=== PATIENT | female | born 1950 | race Caucasian/White ===

== ENCOUNTER 2021-11-12 05:32 | Inpatient (IN) | payer MEDICARE, BC ==
[2021-11-06 13:57] LABS: BASOPHILS # (AUTO) 0.1 X10'3 (0-0.2); BASOPHILS % (AUTO) 0.6 % (0-1); EOSINOPHILS # (AUTO) 0.1 X10'3 (0-0.9); EOSINOPHILS % (AUTO) 0.7 % (0-6); LYMPHOCYTES # (AUTO) 1.4 X10'3 (1.1-4.8); LYMPHOCYTES % (AUTO) 10.6 % (21-51); MEAN CORPUSCULAR HEMOGLOBIN 27.1 PG (27.0-31.0); MEAN CORPUSCULAR HGB CONC 32.4 g/dL (33.0-36.5); MEAN CORPUSCULAR VOLUME 83.6 FL (78-98); MEAN PLATELET VOLUME 8.4 FL (7.4-10.4); MONOCYTES # (AUTO) 1.1 X10'3 (0-0.9); MONOCYTES % (AUTO) 8.4 % (2-12); NEUTROPHILS # (AUTO) 10.8 X10'3 (1.8-7.7); NEUTROPHILS % (AUTO) 79.7 % (42-75); PRE OP HEMATOCRIT 38.8 % (35.0-45.0); PRE OP HEMOGLOBIN 12.6 g/dL (12.0-16.0); PRE OP PLATELET COUNT 295 X10'3 (140-440); RED BLOOD COUNT 4.65 X10'6 (4.20-5.60); RED CELL DISTRIBUTION WIDTH 15.3 % (11.5-14.5)
[2021-11-06 14:23] LABS: HEMOGLOBIN A1C 6.1 % (4.5-6.2)
[2021-11-06 14:28] LABS: ALBUMIN 3.9 G/DL (3.4-5.0); ALBUMIN/GLOBULIN RATIO 0.8 (1.1-1.5); ALKALINE PHOSPHATASE 89 IU/L (46-116); BLOOD UREA NITROGEN 45 MG/DL (7-18); BUN/CREATININE RATIO 36.3 (6.6-38.0); CALCIUM 10.3 MG/DL (8.5-10.1); CHLORIDE 102 MMOL/L (99-107); CREATININE 1.24 MG/DL (0.40-0.90); PRE OP ALT 19 U/L (30-65); PRE OP ANION GAP 11 (8-16); PRE OP AST 21 U/L (10-37); PRE OP BILIRUB, TOTAL 0.5 MG/DL (0.0-1.0); PRE OP GLUCOSE 118 MG/DL (70-104); PRE OP POTASSIUM 4.4 MMOL/L (3.4-5.1); PRE OP SODIUM 137 MMOL/L (135-145); TOTAL CARBON DIOXIDE 24.1 MMOL/L (24-32); TOTAL PROTEIN 8.9 G/DL (6.4-8.2); eGFR 43 ML/MIN
[2021-11-12] VITALS (20 sets, daily range): BP systolic 102–152; BP diastolic 53–95
[~2021-11-12] VITALS: Ht 167.6 cm; Wt 110.0 kg
[~2021-11-12 05:32] MED LIST: ALEN70TA60 PO; DULA1.5P SQ; [UNRECOGNIZED DRUG - OTHER] PO; cefazolin/dext.iso 2gm/50ml IV ONE; famotidine 20mg tablet PO ONE; ringers solution, lacted 1,000 ML IV SCH; tranexamic acid 650mg tablet PO ONE; vancomycin 1,500 MG in NS 300ml IV soln IV ONE
[2021-11-12] MEDS ORDERED: morphine 4 MG/ML inj SYRINge IV ONE (07:35)
[2021-11-12] MEDS ORDERED: morphine 4 MG/ML inj SYRINge ONE (07:39)
[2021-11-12] MEDS ORDERED: ROPIVAcaine 0.5% (5mg/ml) 30ml vial ONE (07:42)
[2021-11-12] MEDS ORDERED: midazolam 1 mg/ML 2ml injection ONE (07:54)
[2021-11-12] MEDS ORDERED: fentaNYL /PF 50mcg/ml 5ml ampule ONE (07:55)
[2021-11-12] MEDS ORDERED: rocuronium 10mg/ml inj IV ONE (08:41)
[2021-11-12] MEDS ORDERED: propofol inj 20 ML IV ONE (08:41)
[2021-11-12] MEDS ORDERED: sevoflurane 250ml liquid IH ONE (08:41)
--- NOTE | 2021-11-12 08:46 | NUR ---
CSM INTACT, JOINT VIDEO WAS VIEWED BY PATIENT
[2021-11-12] MEDS ORDERED: labetalol 20mg/4ml (5mg/ml) syringe IV PRN (10:20)
[2021-11-12] MEDS ORDERED: meperidine/PF 25mg/ml syringe IV PRN ×3 (10:20)
[2021-11-12] MEDS ORDERED: morphine 4 MG/ML inj SYRINge IV PRN (10:20)
[2021-11-12] MEDS ORDERED: ringers solution, lacted 1,000 ML IV SCH (10:20)
[2021-11-12] MEDS ORDERED: ondansetron/PF 4mg/2ml inj IV PRN ×2 (10:20→11:05)
[2021-11-12] MEDS ORDERED: morphine 2 MG/ML inj. syringe IV PRN (10:20)
[2021-11-12] MEDS ORDERED: ondansetron/PF 4mg/2ml inj ONE (10:50)
[2021-11-12] MEDS ORDERED: dexamethasone sod phosphate 4mg/ml inj. ONE (10:50)
[2021-11-12] MEDS ORDERED: acetaminophen 1,000mg/100ml IV 100 ML IV ONE (10:51)
[2021-11-12] MEDS ORDERED: magnesium hydroxide 30ml (MOM) UD suspension PO PRN (11:05)
[2021-11-12] MEDS ORDERED: acetaminophen 325mg tablet PO PRN (11:05)
[2021-11-12] MEDS ORDERED: naloxone 0.4 mg/ml inj IV PRN (11:05)
[2021-11-12] MEDS: potassium cl 20mEq in 1/2 NS 1,000 ML IV SCH ×2 (11:05→20:49)
[2021-11-12] MEDS ORDERED: HYDROmorphone 1 mg/ml syringe IV PRN (11:05)
[2021-11-12] MEDS ORDERED: HYDROcodone/acetaminophen 10/325mg tab PO PRN (11:05)
[2021-11-12] MEDS ORDERED: diphenhydrAMINE 25mg capsule PO PRN ×2 (11:05)
[2021-11-12] MEDS ORDERED: bisacodyl 10mg suppository rectal RC PRN (11:05)
--- NOTE | 2021-11-12 11:10 | NUR ---
PT ARRIVED TO VIA BED, ACCOMPANIED BY DR PEREZ-ANESTHESIA REPORT GIVEN, SLEEPY AT PRESENT, NO SN/SX OF PAIN, VSS, SCDS ON, PIV 18G TO RFA, LEFT KNEE-WRAPPED WITH ICE PRESENT-CDI, PULSES PRESENT
--- NOTE | 2021-11-12 11:55 | NUR ---
PT WAS PRIOR TO SURGERY C/O PAIN IN BILAT LE-GIVEN MS 4MG PREOP, PT STILL UNCOMFORTABLE WHEN AWAKE-RESTLESS, MOVING IN BED, MOANING-ATTEMPTING TO HELP WITH PAIN MEDS.
--- NOTE | 2021-11-12 12:20 | NUR ---
Received report from SUSANA Chatman in PACU
--- NOTE | 2021-11-12 12:30 | NUR ---
PT DOING BETTER NOW, PAIN TOLERABLE, VSS, FAMILY TO BRING IN PT'S CPAP, DRSG-CDI TO LEFT KNEE, PULSES PRESENT, ICE IN PLACE, SCDS ON, LR RUNNING AT 100ML/HR TO PIV 18G RFA, REPORT CALLED TO ELISEO MEZA-ALL QUESTIONS ANSWERED, TAKEN WITH ALL BELONGINGS TO RM 4022A, PRIMARY RN IN TO RECEIVE PT.
[2021-11-12] MEDS: oxyCODONE IR 5mg (immed. release) tablet PO PRN ×2 (13:06→19:36)
[2021-11-12] MEDS: acetaminophen 325mg tablet PO SCH ×2 (14:00→19:37)
[2021-11-12] MEDS: ceFAZolin/D5W- 1GM premix 50 ML IV SCH (15:52)
--- NOTE | 2021-11-12 18:14 | NUR ---
Gave report to SUSANA Alan
[2021-11-12] MEDS: sennosides 8.6mg tablet PO SCH (19:35)
[2021-11-12] MEDS ORDERED: vancomycin/NS 1 GM ADD-VANTAGE 250 ML IV SCH (20:00)
[2021-11-13] MEDS: ceFAZolin/D5W- 1GM premix 50 ML IV SCH (00:28)
[2021-11-13] MEDS: oxyCODONE IR 5mg (immed. release) tablet PO PRN ×5 (01:56→18:39)
[2021-11-13] MEDS: acetaminophen 325mg tablet PO SCH ×4 (01:56→20:52)
[2021-11-13 02:15] VITALS: BP 130/62
--- NOTE | 2021-11-13 02:16 | NUR ---
I reviewed and agree with Yanira Arias's charting including the physical assessment and hourly rounding.
--- NOTE | 2021-11-13 02:41 | NUR ---
Student documentation: I have reviewed interventions, assessments performed and documented by Rebecca DELGADO [facility].
--- NOTE | 2021-11-13 02:43 | NUR ---
Student documentation: I have reviewed interventions, assessments performed and documented by Rebecca DELGADO [facility].
[2021-11-13] MEDS: potassium cl 20mEq in 1/2 NS 1,000 ML IV SCH ×2 (03:05→06:03)
--- NOTE | 2021-11-13 06:18 | NUR ---
Received report from SUSANA Alan
[2021-11-13 06:37] VITALS: BP 150/79
[2021-11-13 06:55] LABS: BASOPHILS % (AUTO) 0.1 % (0-1); EOSINOPHILS % (AUTO) 0 % (0-6); HEMOGLOBIN 9.9 g/dl (12.0-16.0); LYMPHOCYTES # (AUTO) 0.8 X10'3 (1.1-4.8); LYMPHOCYTES % (AUTO) 6.1 % (21-51); MEAN CORPUSCULAR HGB CONC 32.9 g/dL (33.0-36.5); MEAN CORPUSCULAR VOLUME 85.1 FL (78-98); MEAN PLATELET VOLUME 8.6 FL (7.4-10.4); MONOCYTES # (AUTO) 1.1 X10'3 (0-0.9); MONOCYTES % (AUTO) 8.3 % (2-12); NEUTROPHILS # (AUTO) 11.6 X10'3 (1.8-7.7); NEUTROPHILS % (AUTO) 85.5 % (42-75); PLATELET COUNT 214 X10'3 (140-440); RED BLOOD COUNT 3.53 X10'6 (4.20-5.60); RED CELL DISTRIBUTION WIDTH 15.4 % (11.5-14.5); WHITE BLOOD COUNT 13.6 X10'3 (4.5-11.0)
[2021-11-13 07:11] LABS: ANION GAP 6 (8-16); CHLORIDE 104 MMOL/L (99-107); POTASSIUM 4.6 MMOL/L (3.5-5.1); SODIUM 135 MMOL/L (135-145); TOTAL CARBON DIOXIDE 24.9 MMOL/L (24-32)
[2021-11-13] MEDS: HYDROmorphone inj. 0.5 MG/0.5 ML DISP.SYRIN IV PRN ×2 (07:12→20:55)
[2021-11-13] MEDS: [UNRECOGNIZED DRUG - MIXTURE] PO SCH (07:55)
[2021-11-13] MEDS: aspirin 325mg tablet PO SCH (07:56)
[2021-11-13 10:45] VITALS: BP 112/59
[2021-11-13 14:45] VITALS: BP 132/56
[2021-11-13 18:00] VITALS: BP 143/65
--- NOTE | 2021-11-13 18:32 | NUR ---
Report given to SUSANA Alan
[2021-11-13] MEDS: sennosides 8.6mg tablet PO SCH (20:50)
[2021-11-13] MEDS: celeCOXIB 100mg capsule PO SCH (20:51)
[2021-11-13 22:00] VITALS: BP 123/63
[2021-11-14] MEDS: acetaminophen 325mg tablet PO SCH ×2 (02:38→08:03)
[2021-11-14] MEDS: oxyCODONE IR 5mg (immed. release) tablet PO PRN ×4 (02:39→20:42)
--- NOTE | 2021-11-14 05:37 | NUR ---
ANA is working well for pt who was having a hard time with the bedpan and asking to pee every hour. Pt refused to allow us to change her wet linens at night-asked to wait until she was out of bed w/PT in the morning because it was just "too painful and not worth it."
--- NOTE | 2021-11-14 06:16 | NUR ---
Received report from SUSANA Alan
[2021-11-14 06:17] VITALS: BP 119/81
[2021-11-14 06:37] LABS: BASOPHILS % (AUTO) 0.3 % (0-1); EOSINOPHILS # (AUTO) 0.1 X10'3 (0-0.9); EOSINOPHILS % (AUTO) 0.7 % (0-6); HEMATOCRIT 27.4 % (35.0-45.0); HEMOGLOBIN 9.2 g/dl (12.0-16.0); LYMPHOCYTES # (AUTO) 0.8 X10'3 (1.1-4.8); LYMPHOCYTES % (AUTO) 9.1 % (21-51); MEAN CORPUSCULAR HEMOGLOBIN 28.5 PG (27.0-31.0); MEAN CORPUSCULAR HGB CONC 33.7 g/dL (33.0-36.5); MEAN CORPUSCULAR VOLUME 84.5 FL (78-98); MEAN PLATELET VOLUME 8.6 FL (7.4-10.4); MONOCYTES % (AUTO) 10.9 % (2-12); NEUTROPHILS # (AUTO) 7.3 X10'3 (1.8-7.7); PLATELET COUNT 168 X10'3 (140-440); RED BLOOD COUNT 3.24 X10'6 (4.20-5.60); RED CELL DISTRIBUTION WIDTH 15.8 % (11.5-14.5); WHITE BLOOD COUNT 9.2 X10'3 (4.5-11.0)
[2021-11-14] MEDS: [UNRECOGNIZED DRUG - MIXTURE] PO SCH (07:46)
[2021-11-14] MEDS: celeCOXIB 100mg capsule PO SCH ×2 (08:02→20:36)
[2021-11-14] MEDS: aspirin 325mg tablet PO SCH (08:03)
[2021-11-14 10:00] VITALS: BP 128/70
[2021-11-14] MEDS ORDERED: acetaminophen 325mg tablet PO PRN (11:05)
--- NOTE | 2021-11-14 13:30 | NUR ---
Patient needs to use restroom, pt paged.
[2021-11-14 15:30] VITALS: BP 130/56
[2021-11-14 18:00] VITALS: BP 152/76
--- NOTE | 2021-11-14 18:14 | NUR ---
Report given to SUSANA Christianson and HAYDER Orosco
--- NOTE | 2021-11-14 18:49 | NUR ---
Patient in room ORTHO 4022. I have received report from Vivi MEZA and had the opportunity to ask questions and assume patient care.
[2021-11-14] MEDS: sennosides 8.6mg tablet PO SCH (20:37)
[2021-11-14 22:00] VITALS: BP 151/64
--- NOTE | 2021-11-15 05:50 | NUR ---
Preceptor documentation: I have reviewed and agree with all interventions, assessments performed and documented by Ana Luisa SINGLETARY.
[2021-11-15] MEDS: oxyCODONE IR 5mg (immed. release) tablet PO PRN ×2 (05:51→12:44)
[2021-11-15 06:00] VITALS: BP 146/65
--- NOTE | 2021-11-15 06:15 | NUR ---
Problems reprioritized. Patient report given, questions answered & plan of care reviewed with SUSANA More.
--- NOTE | 2021-11-15 06:44 | NUR ---
Patient in room ORTHO 4022. I have received report from SUSANA Christianson and shanthi Orosco LVN and had the opportunity to ask questions and assume patient care.
[2021-11-15 08:30] LABS: HEMOGLOBIN 10.6 g/dl (12.0-16.0); MEAN CORPUSCULAR HEMOGLOBIN 28.2 PG (27.0-31.0); RED BLOOD COUNT 3.75 X10'6 (4.20-5.60)
[2021-11-15 08:31] LABS: BASOPHILS % (AUTO) 0.4 % (0-1); EOSINOPHILS # (AUTO) 0.2 X10'3 (0-0.9); EOSINOPHILS % (AUTO) 1.6 % (0-6); HEMATOCRIT 31.9 % (35.0-45.0); LYMPHOCYTES % (AUTO) 9.2 % (21-51); MEAN CORPUSCULAR HGB CONC 33.2 g/dL (33.0-36.5); MEAN CORPUSCULAR VOLUME 84.9 FL (78-98); MEAN PLATELET VOLUME 8.5 FL (7.4-10.4); MONOCYTES # (AUTO) 0.8 X10'3 (0-0.9); MONOCYTES % (AUTO) 7.5 % (2-12); NEUTROPHILS # (AUTO) 8.4 X10'3 (1.8-7.7); NEUTROPHILS % (AUTO) 81.3 % (42-75); PLATELET COUNT 223 X10'3 (140-440); RED CELL DISTRIBUTION WIDTH 16.2 % (11.5-14.5); WHITE BLOOD COUNT 10.3 X10'3 (4.5-11.0)
[2021-11-15] MEDS: celeCOXIB 100mg capsule PO SCH (08:57)
[2021-11-15] MEDS: [UNRECOGNIZED DRUG - MIXTURE] PO SCH (08:57)
[2021-11-15] MEDS: aspirin 325mg tablet PO SCH (08:57)
[2021-11-15] MEDS ORDERED: COVID-19 VAC, TRIS(PFIZER)/PF 30 MCG/0.3 ML VIAL IMVAC ONE (09:45)
[2021-11-15 10:00] VITALS: BP 131/70
--- NOTE | 2021-11-15 13:30 | NUR ---
Report called to Adrien at [facility]. All questions and concerns answered. Pt pickup pending.
[2021-11-15 14:00] VITALS: BP 139/54
--- NOTE | 2021-11-15 16:49 | NUR ---
Pt discharged to [facility] at 1630, with all belongings, transported by [employer] via gurney. Report called to [facility], IV DC'd, cannula intact.
--- NOTE | 2021-11-15 18:00 | NUR ---
Black cane and 1 bag of clothes found in closet by housekeeping. RPA notified and states they will check and see if pt has a family member or friend that is able to machine operator picker belongings. Call back number [phone] provided.
[2021-11-18] MEDS ORDERED: Alendronate Sodium 70MG PO SCH (11:05)
== END 2021-11-15 16:30 | DRG 470 ==
LOC: PAS IN 05:32 → ORTHO 4S 12:35
PROVIDERS: ADMIT Orthopaedic Surgery; ATTEND Orthopaedic Surgery
PROC: 8E0YXBZ Computer Assisted Procedure of Lower Extremity (ICD-10-PCS; 2021-11-12)
PROC: 8E0Y0CZ Robotic Assisted Procedure of Lower Extremity, Open Approach (ICD-10-PCS; 2021-11-12)
PROC: 0SRD0J9 Replacement of Left Knee Joint with Synthetic Substitute, Cemented, Open Approach (ICD-10-PCS; principal; 2021-11-12 08:41)
PROC: 5A09357 Assistance with Respiratory Ventilation, Less than 24 Consecutive Hours, Continuous Positive Airway Pressure (ICD-10-PCS; 2021-11-13)
PROC: 5A09357 Assistance with Respiratory Ventilation, Less than 24 Consecutive Hours, Continuous Positive Airway Pressure (ICD-10-PCS; 2021-11-14)
PROC: XW023U6 Introduction of COVID-19 Vaccine into Muscle, Percutaneous Approach, New Technology Group 6 (ICD-10-PCS; 2021-11-15)
DX: M17.12 Unilateral primary osteoarthritis, left knee (principal); Z20.822 Contact with and (suspected) exposure to COVID-19; Z23 Encounter for immunization; Z79.899 Other long term (current) drug therapy
CPT/HCPCS: 36415; 80051; 80053; 82948; 83036; 84443; 85025; 87081; 87635; 97110; 97116; 97161; 97530; 97535; A4215; A7000; C1713; C1776; G0378; J0131; J0690; J1100; J1170; J2175; J2250; J2270; J2405; J2704; J2795; J3010; J3370; J3480; J3490; J7040; J7120; U0003; U0005